=== PATIENT | female | born 1990 | race Two or more races ===

== ENCOUNTER 2016-10-29 15:09 | Emergency (ER) | payer MEDICAID, OTHER ==
[~2016-10-29] VITALS: Ht 144.8 cm; Wt 56.7 kg
[~2016-10-29 15:09] MED LIST: ALBUPOW26 XX; FLUT250M9 IN
[2016-10-29 15:54] VITALS: BP 109/69
== END 2016-10-29 16:16 | disposition home or self-care (01) ==
LOC: ER 15:24
DX: L92.3 Foreign body granuloma of the skin and subcutaneous tissue (principal)

== ENCOUNTER 2023-12-14 00:57 | Observation (INO) | payer MEDICAID ==
[~2023-12-14] VITALS: Ht 144.8 cm; Wt 66.2 kg
[2023-12-14] MEDS: TERBUTALINE SULFATE 1 MG/ML 1ML VIAL SC SCH (02:46)
[2023-12-14] MEDS: BETAMETHASONE ACET (30mg/5ml) 5ml Vial 6mg/ml IM ONE (02:51)
[2023-12-14 03:02] LABS: Amphetamine Screen, Urine Neg (NEGATIVE); Barbiturate Scree,Urine Neg (NEGATIVE); Benzodiazephine Screen, Urine Neg (NEGATIVE); Cannabinoid Screen, Urine Neg (NEGATIVE); Cocaine Screen, Urine Neg (NEGATIVE); Opiate Scree,Urine Neg (NEGATIVE); Phencyclidine Screen, Urine Neg (NEGATIVE)
[2023-12-14] MEDS: LACTATED RINGER'S 1,000 ML IV ONE (03:04)
[2023-12-14] MEDS: LACTATED RINGER'S 1,000 ML IV SCH (03:04)
[2023-12-14 03:37] LABS: Urine Bacteria FEW /hpf (None Seen); Urine Blood 3+ /uL (Negative); Urine Clarity Turbid (Clear); Urine Color Light-Brown (Yellow); Urine Mucus FEW (None Seen); Urine Protein, UAD TRACE (Negative); Urine Specific Gravity 1.014 (1.001-1.035); Urine Urobilinogen Normal (Negative); Urine WBC 4 /hpf (0 - 5)
[2023-12-14] MEDS ORDERED: NIFE10CA52 PO (04:35)
[2023-12-14] MEDS: NIFEdipine 10 MG CAP PO ONE (04:41)
== END 2023-12-14 05:26 | disposition home or self-care (01) ==
LOC: LDRP 00:57
PROVIDERS: ADMIT Obstetrics & Gynecology; ATTEND Obstetrics & Gynecology
DX: O99.891 Other specified diseases and conditions complicating pregnancy (principal); M54.50 Low back pain, unspecified; O26.893 Other specified pregnancy related conditions, third trimester; M79.604 Pain in right leg; M79.605 Pain in left leg; R10.9 Unspecified abdominal pain; O99.333 Smoking (tobacco) complicating pregnancy, third trimester; F17.210 Nicotine dependence, cigarettes, uncomplicated; Z3A.29 29 weeks gestation of pregnancy; Z79.899 Other long term (current) drug therapy
CPT/HCPCS: 59025; 80307; 81001; 81002; 94760; 96360; 96361; 96372; G0378; J0702; J3105

== ENCOUNTER 2023-12-14 14:52 | Observation (INO) | payer MEDICAID ==
[~2023-12-14] VITALS: Ht 157.5 cm; Wt 72.6 kg
[~2023-12-14 14:52] MED LIST changes: +NIFE10CA52 PO
[2023-12-14] MEDS ORDERED: BETAMETHASONE ACET (30mg/5ml) 5ml Vial 6mg/ml IM ONE (15:30)
== END 2023-12-14 16:25 | disposition home or self-care (01) ==
LOC: LDRP 14:52
PROVIDERS: ADMIT Obstetrics & Gynecology; ATTEND Obstetrics & Gynecology
DX: O47.03 False labor before 37 completed weeks of gestation, third trimester (principal); O99.891 Other specified diseases and conditions complicating pregnancy; M54.50 Low back pain, unspecified; O26.893 Other specified pregnancy related conditions, third trimester; M79.604 Pain in right leg; M79.605 Pain in left leg; O99.333 Smoking (tobacco) complicating pregnancy, third trimester; F17.210 Nicotine dependence, cigarettes, uncomplicated; Z3A.29 29 weeks gestation of pregnancy
CPT/HCPCS: 59025; 81002; 96372; G0378